=== PATIENT | male | born 1990 | race Caucasian/White ===

== ENCOUNTER 2021-03-08 12:56 | Emergency (ER) | payer OTHER ==
--- NOTE | 2021-03-08 13:25 | ERPHSYRPT ---
- History of Present Illness Time Seen by Provider: 03/08/21 13:15 Historian: patient Exam Limitations: no limitations Patient Subjective Stated Complaint: pt here for a fall at work yesterday,tripped over a box and fell through a swinging door. and now states neck hurts Triage Nursing Assessment: pt walked in, resp easy, skin w/d/p. co pain between sholder blades , no sweling or bruising noted Allergies/Adverse Reactions: amoxicillin [From Augmentin] Allergy (Verified 03/08/21 13:09) clavulanic acid [From Augmentin] Allergy (Verified 03/08/21 13:09) Home Medications: Amlodipine Besylate [Norvasc] 1 ea DAILY 03/08/21 [History] Atorvastatin Calcium [Lipitor] 1 ea DAILY 03/08/21 [History] Lisinopril 10 mg [Zestril 10 MG] 1 ea DAILY 03/08/21 [History] Metformin HCl 500 mg [Glucophage 500 MG] 1 ea TID 03/08/21 [History] Hx Influenza Vaccination/Date Given: No Hx Pneumococcal Vaccination/Date Given: No Travel Risk - International Travel Have you traveled outside of the country in past 3 weeks: No - Coronavirus Screening Are you exhibiting any of the following symptoms?: No Close contact with a COVID-19 positive Pt in past 14-21 Days: No - Vaccine Status Have you recieved a Covid-19 vaccination: Yes 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 - Past Medical History Pertinent Past Medical History: Yes Cardiac History: Hypertension Endocrine Medical History: Diabetes Type II Musculoskeletal History: Other Other Medical History: back pain - Past Surgical History Past Surgical History: Yes Musculoskeletal: Orthopedic Surgery Other Surgical History: back - Social History Smoking Status: Never smoker Exposure to second hand smoke: No Drug Use: none Patient Lives Alone: Yes - Nursing Vital Signs Nursing Vital Signs: Initial Vital Signs Temperature 97.0 F 03/08/21 13:02 Pulse Rate 100 H 03/08/21 13:02 Respiratory Rate 20 03/08/21 13:02 Blood Pressure 176/98 03/08/21 13:02 O2 Sat by Pulse Oximetry 96 03/08/21 13:02 Pain Scale Pain Intensity 4 - Physical Exam SpO2: 96 Ordered Tests: Active Orders 24 hr Category Date Time Status CERVICAL SPINE MINIMUM 4 VIEWS Stat Exams 03/08/21 13:22 Ordered THORACIC SPINE (AP,LAT,SWIMM) Stat Exams 03/08/21 13:23 Ordered
--- NOTE | 2021-03-08 14:02 | XRAY ---
Indication: Pain following fall. Comparison: None 5 view cervical spine demonstrates normal alignment with vertebral body heights/disc spaces maintained. No bony, articular, or soft tissue abnormalities. Foramina bilaterally patent. Impression: Negative cervical spine.
--- NOTE | 2021-03-08 14:04 | XRAY ---
Indication: Pain following fall. Comparison: None AP/lateral thoracic spine demonstrates 12 rib-bearing segments with DEXA scoliosis centered at T6 and old left 8-11 rib fractures. No bony, articular, or soft tissue abnormalities.
--- NOTE | 2021-03-08 14:26 | ERPHSYRPT ---
- History of Present Illness Time Seen by Provider: 03/08/21 13:15 Source: patient Patient Subjective Stated Complaint: pt here for a fall at work yesterday,tripped over a box and fell through a swinging door. and now states neck hurts Triage Nursing Assessment: pt walked in, resp easy, skin w/d/p. co pain between sholder blades , no sweling or bruising noted Physician History: Patient is a 30-year-old male who tripped on a box at his job site and lost his balance and his footing and fell through a door he complains of pain in his neck and upper back. He denies any loss of consciousness or other injury or pain with movement he rates the pain 6 of 7 at rest is 3-4 over 10. Occurred: just prior to arrival Reason for Fall: tripped Injuries/Pain Location: neck, back Loss of Consciousness: no loss of consciousness Quality: throbbing Severity of Pain-Max: moderate Severity of Pain-Current: mild Modifying Factors: Improves With: movement Associated Symptoms (Fall): back pain, neck pain Allergies/Adverse Reactions: amoxicillin [From Augmentin] Allergy (Verified 03/08/21 13:09) clavulanic acid [From Augmentin] Allergy (Verified 03/08/21 13:09) Home Medications: Amlodipine Besylate [Norvasc] 1 ea DAILY 03/08/21 [History] Atorvastatin Calcium [Lipitor] 1 ea DAILY 03/08/21 [History] Lisinopril 10 mg [Zestril 10 MG] 1 ea DAILY 03/08/21 [History] Metformin HCl 500 mg [Glucophage 500 MG] 1 ea TID 03/08/21 [History] Hx Influenza Vaccination/Date Given: No Hx Pneumococcal Vaccination/Date Given: No Travel Risk - International Travel Have you traveled outside of the country in past 3 weeks: No - Coronavirus Screening Are you exhibiting any of the following symptoms?: No Close contact with a COVID-19 positive Pt in past 14-21 Days: No - Vaccine Status Have you recieved a Covid-19 vaccination: Yes 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 - Review of Systems Constitutional: No Fever, No Chills Eyes: No Symptoms Ears, Nose, & Throat: No Symptoms Respiratory: No Cough, No Dyspnea Cardiac: No Chest Pain, No Edema, No Syncope Abdominal/Gastrointestinal: No Abdominal Pain, No Nausea, No Vomiting, No Diarrhea Genitourinary Symptoms: No Dysuria Musculoskeletal: Back Pain, Neck Pain Skin: No Rash Neurological: No Dizziness, No Focal Weakness, No Sensory Changes Psychological: No Symptoms Endocrine: No Symptoms All Other Systems: Reviewed and Negative - Past Medical History Pertinent Past Medical History: Yes Cardiac History: Hypertension Endocrine Medical History: Diabetes Type II Musculoskeletal History: Other Other Medical History: back pain - Past Surgical History Past Surgical History: Yes Musculoskeletal: Orthopedic Surgery Other Surgical History: back - Social History Smoking Status: Never smoker Exposure to second hand smoke: No Drug Use: none Patient Lives Alone: Yes - Nursing Vital Signs Nursing Vital Signs: Initial Vital Signs Temperature 97.0 F 03/08/21 13:02 Pulse Rate 100 H 03/08/21 13:02 Respiratory Rate 20 03/08/21 13:02 Blood Pressure 176/98 03/08/21 13:02 O2 Sat by Pulse Oximetry 96 03/08/21 13:02 Pain Scale Pain Intensity 4 - Daniela Coma Score Best Eye Response (Daniela): (4) open spontaneously Best Verbal Response (Daniela): (5) oriented Best Motor Response (Daniela): (6) obeys commands Daniela Total: 15 - Physical Exam General Appearance: mild distress, alert Head Injury: no evidence of injury Eye Exam: PERRL/EOMI ENT Exam: airway nml Neck Exam: paraspinous muscle tender, pain on movement of neck, mid-line tenderness, No tenderness Respiratory/Chest Exam: normal breath sounds, No chest tenderness, No respiratory distress Cardiovascular Exam: normal heart sounds, regular rate/rhythm Gastrointestinal Exam: soft, No tenderness, No distention, No guarding, No ecchymosis Back Exam: decreased range of motion, point tenderness, No vertebral tenderness Extremity Exam: normal inspection, normal range of motion, pelvis stable, No deformities Neurologic Exam: alert, oriented x 3, cooperative, sensation nml, No motor deficits Skin Exam: normal color, warm, dry SpO2: 96 - Course Nursing assessment & vital signs reviewed: Yes - Radiology Exams C-Spine X-ray Interpretation: Negative (For acute fracture dislocation) T-Spine X-ray Interpretation: Negative (Negative for any acute fracture or dislocation) Ordered Tests: Active Orders 24 hr Category Date Time Status CERVICAL SPINE MINIMUM 4 VIEWS Stat Exams 03/08/21 13:22 Completed THORACIC SPINE (AP,LAT,SWIMM) Stat Exams 03/08/21 13:23 Completed - Progress Progress: unchanged Progress Note: 03/08/21 14:25 Pain does not require any medication. - Departure Departure Disposition: Home Clinical Impression: Cervical strain, Strain of thoracic back region Condition: Stable Critical Care Time: No Referrals: GILLES HUERTA MD [Primary Care Provider] - Instructions: Cervical Muscle Strain (DC)
[2021-03-08 14:43] VITALS: BP 135/74; PULSE 78; O2SAT 98
== END 2021-03-08 14:43 | disposition home or self-care (01) ==
LOC: ED 12:56
DX: S16.1XXA Strain of muscle, fascia and tendon at neck level, initial encounter (principal); S29.012A Strain of muscle and tendon of back wall of thorax, initial encounter; W01.0XXA Fall on same level from slipping, tripping and stumbling without subsequent striking against object, initial encounter; Y93.89 Activity, other specified; Y92.89 Other specified places as the place of occurrence of the external cause; Y99.0 Civilian activity done for income or pay; M54.2 Cervicalgia; M54.6 Pain in thoracic spine
CPT/HCPCS: 72050; 72072; 99283